=== PATIENT | male | born 1955 | race Caucasian/White ===

== ENCOUNTER 2018-11-12 21:05 | Emergency (ER) | payer BC ==
[2018-11-12] MEDS ORDERED: Albuterol/Ipratropium 3.0-0.5 MG/3 ML Neb Soln NEB ONE (21:47)
[2018-11-12] MEDS ORDERED: methylPREDNISolone Sodium Succinate 125 MG/2 ML SDV IVPUSH ONE (21:47)
--- NOTE | 2018-11-12 21:55 | EDM.PDOC ---
<Teodora White E - Last Filed: 11/12/18 21:56> ED HPI GENERAL MEDICAL PROBLEM - General Chief Complaint: Eye Problems Stated Complaint: PT HAS BLURRED VISION Time Seen by Provider: 11/12/18 21:46 Source of Information: Reports: Patient History Limitations: Reports: No Limitations - History of Present Illness INITIAL COMMENTS - FREE TEXT/NARRATIVE: HISTORY AND PHYSICAL: History of present illness: Patient is a 63-year-old male who presents to the emergency room with complaints of right eye visual changes. He states approximately one week ago he did have some extreme dryness read felt like he could feel a small lump on the actual sclera. His symptoms resolved and he had not thought about it any further. This morning he did have some word vision of the right eye and states he feels that lump to the inner right eye. He denies any recent head injury, trauma as or falls. Denies any headache, neck pain or light/noise sensitivity. He states it's been approximately 5 years since his last visual exam. He did have Lasix I surgery bilaterally approximately 7 years ago. He denies any fever , chills, chest pain, shortness of breath, abdominal pain, nausea, vomiting, diarrhea or constipation. He has been eating and drinking appropriately. Visual acuity: right 20/100, left 20/30, both 20/40. Does not wear contact lenses or use corrective glasses. Review of systems: As per history of present illness and below otherwise all systems reviewed and negative. Past medical history: As per history of present illness and as reviewed below otherwise noncontributory. Surgical history: As per history of present illness and as reviewed below otherwise noncontributory. Social history: See social history for further information Family history: As per history of present illness and as reviewed below otherwise noncontributory. Physical exam: General: Well-developed and well-nourished 63-year-old male. Alert and oriented. Nontoxic appearing and in no acute distress. HEENT: Atraumatic, normocephalic, pupils equal and reactive bilaterally, negative for conjunctival pallor or scleral icterus, does appear to have a small bleb on the 4 to 5 o'clock position of the iris, appears to have bilateral dry eye with mild scleral injection, mucous membranes moist, TMs normal bilaterally, throat clear, neck supple, nontender, trachea midline. No drooling or trismus noted. No meningeal signs. No hot potato voice noted. Lungs: Slightly diminished throughout to auscultation, breath sounds equal bilaterally, chest nontender. Heart: S1S2, regular rate and rhythm without overt murmur Abdomen: Soft, nondistended, nontender. Negative for masses or hepatosplenomegaly. Negative for costovertebral tenderness. Pelvis: Stable nontender. Genitourinary: Deferred. Rectal: Deferred. Skin: Intact, warm, dry. No lesions or rashes noted. Extremities: Atraumatic, negative for cords or calf pain. Neurovascular unremarkable. Neuro: Awake, alert, oriented. Cranial nerves II through XII unremarkable. Cerebellum unremarkable. Motor and sensory unremarkable throughout. Exam nonfocal. Notes: Patient's oxygen saturation on room air is 88%. Patient is agreeable to the diagnostics that we discussed. Dr Dickens will take over on this patient. Diagnostics: CBC, CMP, chest x-ray, head CT, ESR, PT/INR, UA, EKG Therapeutics: Solu-Medrol, DuoNeb Definitive disposition and diagnosis as appropriate pending reevaluation and review of above. - Related Data Allergies Allergy/AdvReac Type Severity Reaction Status Date / Time No Known Allergies Allergy Verified 11/12/18 21:43 Home Meds: Home Meds Albuterol Sulfate [Proair Hfa] 8.5 gm IH ASDIRECTED PRN 11/12/18 [History] LORazepam [Ativan] 1 mg PO BEDTIME 11/12/18 [History] Levalbuterol HCl [Levalbuterol Concentrate] 1.25 mg IH TID PRN 11/12/18 [History ] Montelukast [Singulair] 10 mg PO DAILY 11/12/18 [History] Rosuvastatin Calcium 40 mg PO DAILY 11/12/18 [History] amLODIPine Besylate [Amlodipine Besylate] 5 mg PO DAILY 11/12/18 [History] hydroCHLOROthiazide [Hydrochlorothiazide] 25 mg PO DAILY 11/12/18 [History] ED ROS GENERAL - Review of Systems Review Of Systems: ROS reveals no pertinent complaints other than HPI. ED EXAM GENERAL W FULL EYE - Physical Exam Exam: See Below (See dictation) Course - Vital Signs Last Recorded V/S: Last Vital Signs Temp 97.6 F 11/12/18 21:41 Pulse 84 11/12/18 23:04 Resp 20 11/12/18 23:04 BP 149/84 H 11/12/18 23:04 Pulse Ox 93 L 11/12/18 23:04 - Orders/Labs/Meds Orders: Active Orders 24 hr Category Date Time Status EKG Documentation Completion [RC] STAT Care 11/12/18 21:47 Active RT Aerosol Therapy [RC] ASDIRECTED Care 11/12/18 21:47 Active UA W/MICROSCOPIC [URIN] Stat Lab 11/12/18 22:57 Results Sodium Chloride 0.9% [Normal Saline] 1,000 ml Med 11/12/18 22:00 Active IV STAT Medication Orders Sodium Chloride (Normal Saline) 1,000 mls @ 125 mls/hr IV STAT NILESH Last Admin: 11/12/18 22:04 Dose: 125 mls/hr Labs: Laboratory Tests 11/12/18 11/12/18 11/12/18 Range/Units 22:00 22:00 22:00 WBC 6.90 (4.0-11.0) K/uL RBC 4.55 (4.50-5.90) M/uL Hgb 15.3 (13.0-17.0) g/dL Hct 42.7 (38.0-50.0) % MCV 93.8 (80.0-98.0) fL MCH 33.6 H (27.0-32.0) pg MCHC 35.8 (31.0-37.0) g/dL RDW Std Deviation 43.1 (28.0-62.0) fl RDW Coeff of Kevin 13 (11.0-15.0) % Plt Count 204 (150-400) K/uL MPV 8.20 (7.40-12.00) fL Neut % (Auto) 54.4 (48.0-80.0) % Lymph % (Auto) 30.3 (16.0-40.0) % [place] % (Auto) 13.8 (0.0-15.0) % Eos % (Auto) 1.2 (0.0-7.0) % Baso % (Auto) 0.3 (0.0-1.5) % Neut # (Auto) 3.8 (1.4-5.7) K/uL Lymph # (Auto) 2.1 (0.6-2.4) K/uL [place] # (Auto) 1.0 H (0.0-0.8) K/uL Eos # (Auto) 0.1 (0.0-0.7) K/uL Baso # (Auto) 0.0 (0.0-0.1) K/uL Nucleated RBC % 0.0 /100WBC Nucleated RBCs # 0 K/uL ESR 3 (0-19) mm/hr INR Sodium 130 L (136-148) mmol/L Potassium 3.1 L (3.5-5.1) mmol/L Chloride 93 L (98-107) mmol/L Carbon Dioxide 23.9 (21.0-32.0) mmol/L BUN 9 (7.0-18.0) mg/dL Creatinine 0.9 (0.8-1.3) mg/dL Est Cr Clr Drug Dosing 93.41 mL/min Estimated GFR (MDRD) > 60.0 ml/min Glucose 112 H (74-106) mg/dL Calcium 9.4 (8.5-10.1) mg/dL Total Bilirubin 0.6 (0.2-1.0) mg/dL AST 14 L (15-37) IU/L ALT 35 (14-63) IU/L Alkaline Phosphatase 108 (46-116) U/L Troponin I < 0.050 (0.000-0.056) ng/mL Total Protein 7.4 (6.4-8.2) g/dL Albumin 3.8 (3.4-5.0) g/dL Globulin 3.6 (2.6-4.0) g/dL Albumin/Globulin Ratio 1.1 (0.9-1.6) Urine Color Urine Appearance Urine pH (5.0-8.0) Ur Specific [place] (1.001-1.035) Urine Protein (NEGATIVE) mg/dL Urine Glucose (UA) (NEGATIVE) mg/dL Urine Ketones (NEGATIVE) mg/dL Urine Occult Blood (NEGATIVE) Urine Nitrite (NEGATIVE) Urine Bilirubin (NEGATIVE) Urine Urobilinogen (<2.0) EU/dL Ur Leukocyte Esterase (NEGATIVE) 11/12/18 11/12/18 Range/Units 22:00 22:57 WBC (4.0-11.0) K/uL RBC (4.50-5.90) M/uL Hgb (13.0-17.0) g/dL Hct (38.0-50.0) % MCV (80.0-98.0) fL MCH (27.0-32.0) pg MCHC (31.0-37.0) g/dL RDW Std Deviation (28.0-62.0) fl RDW Coeff of Kevin (11.0-15.0) % Plt Count (150-400) K/uL MPV (7.40-12.00) fL Neut % (Auto) (48.0-80.0) % Lymph % (Auto) (16.0-40.0) % [place] % (Auto) (0.0-15.0) % Eos % (Auto) (0.0-7.0) % Baso % (Auto) (0.0-1.5) % Neut # (Auto) (1.4-5.7) K/uL Lymph # (Auto) (0.6-2.4) K/uL [place] # (Auto) (0.0-0.8) K/uL Eos # (Auto) (0.0-0.7) K/uL Baso # (Auto) (0.0-0.1) K/uL Nucleated RBC % /100WBC Nucleated RBCs # K/uL ESR (0-19) mm/hr INR 1.01 Sodium (136-148) mmol/L Potassium (3.5-5.1) mmol/L Chloride (98-107) mmol/L Carbon Dioxide (21.0-32.0) mmol/L BUN (7.0-18.0) mg/dL Creatinine (0.8-1.3) mg/dL Est Cr Clr Drug Dosing mL/min Estimated GFR (MDRD) ml/min Glucose (74-106) mg/dL Calcium (8.5-10.1) mg/dL Total Bilirubin (0.2-1.0) mg/dL AST (15-37) IU/L ALT (14-63) IU/L Alkaline Phosphatase (46-116) U/L Troponin I (0.000-0.056) ng/mL Total Protein (6.4-8.2) g/dL Albumin (3.4-5.0) g/dL Globulin (2.6-4.0) g/dL Albumin/Globulin Ratio (0.9-1.6) Urine Color YELLOW Urine Appearance CLEAR Urine pH 6.5 (5.0-8.0) Ur Specific [place] <= 1.005 (1.001-1.035) Urine Protein NEGATIVE (NEGATIVE) mg/dL Urine Glucose (UA) NEGATIVE (NEGATIVE) mg/dL Urine Ketones NEGATIVE (NEGATIVE) mg/dL Urine Occult Blood SMALL H (NEGATIVE) Urine Nitrite NEGATIVE (NEGATIVE) Urine Bilirubin NEGATIVE (NEGATIVE) Urine Urobilinogen 0.2 (<2.0) EU/dL Ur Leukocyte Esterase NEGATIVE (NEGATIVE) Meds: Medications Generic Name Dose Route Start Last Admin Trade Name Freq PRN Reason Stop Dose Admin Sodium Chloride 1,000 mls @ 125 mls/hr 11/12/18 22:00 11/12/18 22:04 Normal Saline IV 125 mls/hr STAT NILESH Administration Discontinued Medications Generic Name Dose Route Start Last Admin Trade Name Freq PRN Reason Stop Dose Admin Albuterol/Ipratropium 3 ml 11/12/18 21:47 11/12/18 22:04 Duoneb 3.0-0.5 Mg/3 Ml NEB 11/12/18 21:48 3 ml ONETIME ONE Administration Methylprednisolone Sodium Succinate 125 mg 11/12/18 21:47 11/12/18 22:04 Solu-Medrol IVPUSH 11/12/18 21:48 125 mg ONETIME ONE Administration Tetracaine HCl Confirm 11/12/18 22:14 11/12/18 22:46 Tetracaine 0.5% Steri-Unit Yarely Administered 11/12/18 22:15 Not Given Dose 4 ml .ROUTE .STK-MED ONE Tetracaine HCl 1 ml 11/12/18 22:43 11/12/18 22:45 Tetracaine 0.5% Steri-Unit Yarely EYERT 11/12/18 22:44 1 ml ASDIRECTED ONE Administration Departure - Departure Disposition: Home, Self-Care 01 Clinical Impression: Sinusitis - Discharge Information Referrals: PCP,None [Primary Care Provider] - Forms: ED Department Discharge Additional Instructions: Vacation as prescribed Return if symptoms persist or worsen Follow-up with primary care in 2 weeks sooner as needed if Vision changes persist or worsen recommend ophthalmology exam at [facility] [address] [place] [address] The following information is given to patients seen in the emergency department who are being discharged to home. This information is to outline your options for follow-up care. We provide all patients seen in our emergency department with a follow-up referral. The need for follow-up, as well as the timing and circumstances, are variable depending upon the specifics of your emergency department visit. If you don't have a primary care physician on staff, we will provide you with a referral. We always advise you to contact your personal physician following an emergency department visit to inform them of the circumstance of the visit and for follow-up with them and/or the need for any referrals to a consulting specialist. The emergency department will also refer you to a specialist when appropriate. This referral assures that you have the opportunity for follow-up care with a specialist. All of these measure are taken in an effort to provide you with optimal care, which includes your follow-up. Under all circumstances we always encourage you to contact your private physician who remains a resource for coordinating your care. When calling for follow-up care, please make the office aware that this follow-up is from your recent emergency room visit. If for any reason you are refused follow-up, please contact the [facility] emergency department at and asked to speak to the emergency department charge nurse. - My Orders Last 24 Hours: My Active Orders 11/12/18 21:47 EKG Documentation Completion [RC] STAT RT Aerosol Therapy [RC] ASDIRECTED 11/12/18 22:00 Sodium Chloride 0.9% [Normal Saline] 1,000 ml IV STAT - Assessment/Plan Last 24 Hours: My Active Orders 11/12/18 21:47 EKG Documentation Completion [RC] STAT RT Aerosol Therapy [RC] ASDIRECTED 11/12/18 22:00 Sodium Chloride 0.9% [Normal Saline] 1,000 ml IV STAT <Blaine Dickens - Last Filed: 11/12/18 23:32> ED HPI GENERAL MEDICAL PROBLEM - History of Present Illness INITIAL COMMENTS - FREE TEXT/NARRATIVE: I've seen and examined the patient and agree with the above although he did not have Lasix surgery he had a cataract procedure with implant Per patient HEENT is grossly within normal limits he does have sinus tenderness on the right Chest clear CV regular abdomen benign extremities four-inch motion no edema SK[employer] alert nonfocal Head CT is negative outside of right maxillary sinus disease Ocular pressure is 18 with [employer] Solu-Medrol DuoNeb Augmentin 875 per 125 by mouth twice a day #20 no refill Patient will follow-up with ophthalmology early next week Impression Sinusitis Chronic history of baseline Definitive disposition and diagnosis as appropriate pending reevaluation and review of above ED ROS GENERAL - Review of Systems Review Of Systems: See Below ED EXAM GENERAL W FULL EYE - Physical Exam Exam: See Below Departure - Departure Time of Disposition: 23:31 Condition: Good
[2018-11-12] MEDS ORDERED: Sodium Chloride 0.9% 1,000 ML IV SCH (22:00)
[2018-11-12] MEDS ORDERED: Tetracaine HCl/PF 0.5% 4 ML Bottle ONE (22:14)
--- NOTE | 2018-11-12 22:29 | CR ---
INDICATION: Shortness of breath TECHNIQUE: Chest 1 views COMPARISON: Chest x-ray 01/02/2014 FINDINGS: Cardiovascular and mediastinum: Heart size and vasculature are normal in caliber and appearance. Lungs and pleural spaces: Lungs are clear. No sign of infiltrate or mass. No sign of pleural effusion. No pneumothorax. Bones and soft tissues: No significant findings. IMPRESSION: No acute findings and no significant changes from the prior exam. Dictated by Shemar Apodaca MD @ Nov 12 2018 10:26PM Signed by Dr. Shemar Apodaca @ Nov 12 2018 10:27PM
[2018-11-12 22:34] LABS: CHLORIDE,CL 93 mmol/L (98-107); SODIUM,NA 130 mmol/L (136-148)
[2018-11-12] MEDS ORDERED: Tetracaine HCl/PF 0.5% 4 ML Bottle EYERT ONE (22:43)
--- NOTE | 2018-11-12 23:20 | CT ---
INDICATION: Headache TECHNIQUE: CT head without contrast. COMPARISON: None available FINDINGS: There is cortical atrophy. The ventricles are within normal limits for the patient`s age. There is no mass effect or midline shift. White matter hypodensities are suggestive of chronic small vessel ischemic changes. 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 There is no loss of yan-white differentiation. There is no evidence of an acute intracranial hemorrhage. No acute calvarial fracture is seen. There is debris in the right maxillary sinus. The mastoid air cells are clear. Post cataract surgery changes are seen. IMPRESSION: No evidence of an acute intracranial hemorrhage, mass effect or loss of yan-white differentiation. Atrophy and chronic ischemic changes. Right maxillary sinus disease. Dictated by James Serrano MD @ 11/12/2018 11:18:29 PM Please note that all CT scans at this facility use dose modulation, iterative reconstruction, and/or weight-based dosing when appropriate to reduce radiation dose to as low as reasonably achievable. Dictated by: James Serrano MD @ 11/12/2018 23:18:34 (Electronically Signed)
== END 2018-11-12 23:47 | disposition home or self-care (01) ==
LOC: MW.ED 21:05
DX: J32.9 Chronic sinusitis, unspecified (principal); Z79.899 Other long term (current) drug therapy; Z87.891 Personal history of nicotine dependence
CPT/HCPCS: 36415; 70450; 71045; 80053; 81001; 84484; 85025; 85610; 85652; 87804; 93005; 94640; 96361; 96374; 99285; J2930; J7040; J7620-GY

== ENCOUNTER 2022-04-13 16:16 | Emergency (ER) | payer BC ==
[2022-04-13] MEDS ORDERED: Ondansetron 4 MG Tab.DIS PO ONE (16:47)
[2022-04-13] MEDS ORDERED: fentaNYL 50 MCG/ML SDV IM ONE (16:47)
== END 2022-04-13 18:43 | disposition home or self-care (01) ==
LOC: MW.ED 16:16
DX: K40.90 Unilateral inguinal hernia, without obstruction or gangrene, not specified as recurrent (principal); K57.10 Diverticulosis of small intestine without perforation or abscess without bleeding; M16.0 Bilateral primary osteoarthritis of hip
CPT/HCPCS: 72192; 96372; 99283; A9270; J3010

== ENCOUNTER 2022-05-01 08:30 | Day surgery (SDC) | payer BC ==
[~2022-05-01 08:30] MED LIST: Albuterol 0.083% 2.5 MG/3 ML Neb Soln NEB PRN; Bupivacaine 0.5% 10 ML SDV ONE; HYDROmorphone 1 MG/ML Syringe IVPUSH PRN; Lactated Ringers 1,000 ML IV SCH; Metoclopramide 10 MG/2 ML SDV IVPUSH PRN; Morphine 2 MG/ML SYRINGE IVPUSH PRN; Naloxone 0.4 MG/ML SDV IVPUSH PRN; Ondansetron 4 MG/2 ML SDV IVPUSH PRN; Propofol 200 MG/20 ML SDV ONE; ceFAZolin 1 GM Vial ONE; ceFAZolin 2 GM in Premix Bag 1 BAG IV SCH; fentaNYL 250 MCG/5 ML SDV ONE; fentaNYL 50 MCG/ML SDV IVPUSH PRN
[2022-05-01] MEDS ORDERED: Ropivacaine 0.5% 5 MG/ML 30 ML SDV ONE (09:04)
[2022-05-01] MEDS ORDERED: Bupivacaine 0.25%/EPINEPHrine 1:200,000 10 ML SDV ONE (09:05)
[2022-05-01] MEDS ORDERED: Dexamethasone 4 MG/ML 5 ML MDV ONE (11:20)
[2022-05-01] MEDS ORDERED: Ondansetron 4 MG/2 ML SDV ONE (11:20)
[2022-05-01] MEDS ORDERED: ePHEDrine 50 MG/ML SDV ONE (11:20)
[2022-05-01] MEDS ORDERED: Ondansetron 4 MG/2 ML SDV IVPUSH PRN (11:29)
[2022-05-01] MEDS ORDERED: Morphine 2 MG/ML SYRINGE IVPUSH PRN (11:29)
[2022-05-01] MEDS ORDERED: Acetaminophen/HYDROcodone 325-5 MG Tab PO PRN ×2 (11:29→11:40)
[2022-05-01] MEDS ORDERED: Lactated Ringers 1,000 ML IV SCH (11:30)
== END 2022-05-01 14:59 | disposition home or self-care (01) ==
LOC: MW.SDS 08:30
PROVIDERS: ATTEND Surgery
DX: K40.90 Unilateral inguinal hernia, without obstruction or gangrene, not specified as recurrent (principal); J44.9 Chronic obstructive pulmonary disease, unspecified; F41.9 Anxiety disorder, unspecified; E78.5 Hyperlipidemia, unspecified; I10 Essential (primary) hypertension; Z72.89 Other problems related to lifestyle; Z79.899 Other long term (current) drug therapy
CPT/HCPCS: 49505; C1781; J0131; J0690; J1100; J2704; J2795; J3010; J3490; J7120; 00830; 64486; J2405